=== PATIENT | male | born 1970 | race Caucasian/White ===

== ENCOUNTER 2021-04-30 20:06 | Observation (INO) ==
[2021-04-30 20:59] LABS: Basophils % 0.2 %; Hematocrit 33.2 % (37.5-50.1); Hemoglobin 11.4 g/dL (12.9-16.9); Immature Granulocytes % 0.2 % (0-4); Lymphocytes # 1.1 K/mcL (0.6-4.6); Lymphocytes % 20.8 %; Mean Corpuscular HGB Conc 34.3 g/dL (31.6-35.5); Mean Corpuscular Hemoglobin 31.5 pg (28.0-33.3); Mean Corpuscular Volume 91.7 fL (83.0-100.0); Mean Platelet Volume 11.1 fL (9.4-12.4); Monocytes # 0.4 K/mcL (0.0-1.3); Monocytes % 6.8 %; Platelet Count 167 K/mcL (140-400); Red Blood Count 3.62 M/mcL (4.19-5.50); Red Cell Distribution Width 12.8 % (11.5-14.5); White Blood Count 5.5 K/mcL (4.3-11.1)
[2021-04-30 21:06] LABS: INR 1.3
[2021-04-30] MEDS ORDERED: Isovue-370 500 ML BOTTLE IVP ONE ×2 (21:08→23:15)
[2021-04-30 21:09] LABS: Activated Partial Thrombo Time 27.6 Seconds (26.0-36.0)
[2021-04-30 21:17] LABS: Troponin I < 0.03 ng/mL (< 0.04)
[2021-04-30 21:18] LABS: Alanine Aminotransferase 41 Units/L (7-52); Albumin 3.6 g/dL (3.5-5.7); Albumin/Globulin Ratio 1.7 (1.1-2.2); Alkaline Phosphatase 27 Units/L (34-104); Aspartate Amino Transferase 52 Units/L (13-39); BUN/Creatinine Ratio 11 (6-26); Bilirubin,Total 0.3 mg/dL (0.3-1.0); Blood Urea Nitrogen 30 mg/dL (6-20); Calcium 7.1 mg/dL (8.6-10.3); Carbon Dioxide 23 mEq/L (23-29); Chloride 97 mEq/L (98-107); Globulin 2.1 g/dL (2.4-3.5); Glucose 181 mg/dL (70-105); Osmolality,Calculated 283 (280-300); Potassium 3.4 mEq/L (3.5-5.1); Sodium 131 mEq/L (136-145); Total Protein 5.7 g/dL (6.4-8.9); eGFR For African Americans 30 (> 60); eGFR For Non-African Americans 25 (> 60)
[2021-04-30] MEDS ORDERED: Azithromycin 500 MG in D5% in Water 250 ML IVPB ONE ×2 (22:35→23:15)
[2021-04-30] MEDS ORDERED: cefTRIAXone 1,000 MG in 0.9 % Sodium Chloride Mini Bag 100 ML IVPB ONE ×2 (22:35→23:15)
[2021-04-30] MEDS ORDERED: *HR* Enoxaparin 40 MG/0.4 ML SYRINGE SQ STA ×2 (22:36→23:15)
[2021-04-30] MEDS ORDERED: 0.9 % Sodium Chloride 1,000 ML IVC SCH ×2 (22:45→23:15)
[2021-04-30] MEDS ORDERED: Ibuprofen 400 MG TABLET PO PRN (23:15)
[2021-04-30] MEDS ORDERED: Ondansetron ODT 4 MG TAB.RAPDIS SL PRN (23:15)
[2021-04-30] MEDS ORDERED: Naloxone 0.4 MG/ML INJ IVP PRN (23:15)
[2021-04-30] MEDS ORDERED: *HR* HYDROcodone/Acet 10/325 mg TABLET PO PRN (23:15)
[2021-05-01] MEDS: *HR* Enoxaparin 40 MG/0.4 ML SYRINGE SQ SCH (04:56)
[2021-05-01] MEDS ORDERED: Benzonatate 100 MG CAPSULE PO PRN (07:50)
[2021-05-01] MEDS: BuPROPion XL (24 HR) 150 MG TABLET PO SCH (08:02)
[2021-05-01] MEDS: Fenofibrate 54 MG TABLET PO SCH (08:03)
[2021-05-01] MEDS: Gabapentin 300 MG CAPSULE PO SCH ×3 (08:03→20:20)
[2021-05-01] MEDS: Loratadine 10 MG TABLET PO SCH (08:03)
[2021-05-01] MEDS: Venlafaxine XR (24 HR) 150 MG CAP.ER.24H PO SCH (08:03)
[2021-05-01 08:26] LABS: Hematocrit 29.9 % (37.5-50.1); Hemoglobin 10.6 g/dL (12.9-16.9); Immature Granulocytes % 0.5 % (0-4); Lymphocytes # 0.8 K/mcL (0.6-4.6); Lymphocytes % 22.6 %; Mean Corpuscular HGB Conc 35.5 g/dL (31.6-35.5); Mean Corpuscular Hemoglobin 31.8 pg (28.0-33.3); Mean Corpuscular Volume 89.8 fL (83.0-100.0); Mean Platelet Volume 10.8 fL (9.4-12.4); Monocytes # 0.2 K/mcL (0.0-1.3); Monocytes % 4.9 %; Neutrophils # 2.7 K/mcL (1.6-8.9); Platelet Count 156 K/mcL (140-400); Red Blood Count 3.33 M/mcL (4.19-5.50); Red Cell Distribution Width 12.7 % (11.5-14.5); White Blood Count 3.7 K/mcL (4.3-11.1)
[2021-05-01 08:35] LABS: BUN/Creatinine Ratio 17 (6-26); Blood Urea Nitrogen 20 mg/dL (6-20); Calcium 7.2 mg/dL (8.6-10.3); Carbon Dioxide 26 mEq/L (23-29); Chloride 101 mEq/L (98-107); Glucose 159 mg/dL (70-105); Osmolality,Calculated 284 (280-300); Potassium 3.7 mEq/L (3.5-5.1); Sodium 134 mEq/L (136-145); eGFR For African Americans > 60 (> 60); eGFR For Non-African Americans > 60 (> 60)
[2021-05-01] MEDS ORDERED: lisinopriL 20 MG TABLET PO SCH (09:00)
[2021-05-01] MEDS: 0.9 % Sodium Chloride 1,000 ML IVC SCH ×3 (09:20→23:12)
[2021-05-01] MEDS: Acetaminophen 325 MG TABLET PO PRN ×2 (11:00→20:19)
[2021-05-01 12:18] LABS: C-Reactive Protein < 5 mg/L (Less than 10)
[2021-05-01 13:14] LABS: Ferritin 1096 ng/mL (20-250)
[2021-05-01] MEDS ORDERED: Azithromycin 500 MG in 0.9 % Sodium Chloride 250 ML IVPB SCH (21:00)
[2021-05-01] MEDS ORDERED: QUEtiapine Fumarate 25 MG TABLET PO SCH (21:00)
[2021-05-01] MEDS ORDERED: cefTRIAXone 2,000 MG in 0.9 % Sodium Chloride Mini Bag 100 ML IVPB SCH (21:00)
[2021-05-01] MEDS ORDERED: risperiDONE 1 MG TABLET PO SCH (21:00)
[2021-05-02] MEDS: *HR* Enoxaparin 40 MG/0.4 ML SYRINGE SQ SCH (06:24)
[2021-05-02 06:53] VITALS: BP 98/61; PULSE 50; RESP 16; TEMP 97.4; O2SAT 97
[2021-05-02 07:04] LABS: Hematocrit 30.8 % (37.5-50.1); Hemoglobin 10.8 g/dL (12.9-16.9); Immature Granulocytes % 0.3 % (0-4); Lymphocytes % 28.4 %; Mean Corpuscular HGB Conc 35.1 g/dL (31.6-35.5); Mean Corpuscular Hemoglobin 31.4 pg (28.0-33.3); Mean Corpuscular Volume 89.5 fL (83.0-100.0); Mean Platelet Volume 10.6 fL (9.4-12.4); Monocytes # 0.4 K/mcL (0.0-1.3); Monocytes % 11.7 %; Platelet Count 140 K/mcL (140-400); Red Blood Count 3.44 M/mcL (4.19-5.50); Red Cell Distribution Width 12.3 % (11.5-14.5); Segmented Neutrophils % 59.6 %; White Blood Count 3.6 K/mcL (4.3-11.1)
[2021-05-02 07:27] LABS: BUN/Creatinine Ratio 15 (6-26); Blood Urea Nitrogen 12 mg/dL (6-20); Calcium 7.7 mg/dL (8.6-10.3); Carbon Dioxide 26 mEq/L (23-29); Chloride 106 mEq/L (98-107); Glucose 230 mg/dL (70-105); Neutrophils # 2.2 K/mcL (1.6-8.9); Osmolality,Calculated 297 (280-300); Potassium 4.2 mEq/L (3.5-5.1); Sodium 140 mEq/L (136-145); eGFR For African Americans > 60 (> 60); eGFR For Non-African Americans > 60 (> 60)
[2021-05-02] MEDS: Loratadine 10 MG TABLET PO SCH (09:29)
[2021-05-02] MEDS: Venlafaxine XR (24 HR) 150 MG CAP.ER.24H PO SCH (09:30)
[2021-05-02] MEDS: Acetaminophen 325 MG TABLET PO PRN (09:30)
[2021-05-02] MEDS: BuPROPion XL (24 HR) 150 MG TABLET PO SCH (09:30)
[2021-05-02] MEDS: Fenofibrate 54 MG TABLET PO SCH (09:30)
[2021-05-02] MEDS: Gabapentin 300 MG CAPSULE PO SCH (09:31)
== END 2021-05-02 11:40 | disposition home or self-care (01) ==
LOC: INPPIK 20:06 → EMEROOPIK 20:06 → INPPIK 23:06
PROVIDERS: ADMIT Internal Medicine; ATTEND Family Medicine

== ENCOUNTER 2021-05-06 10:50 | Observation (INO) ==
[2021-05-06] MEDS ORDERED: Ipratropium/Albuterol Neb 3 ML IH ONE (10:55)
[2021-05-06] MEDS ORDERED: methylPREDNISolone 125 MG/2 ML VIAL IVP ONE (10:55)
[2021-05-06] MEDS ORDERED: Azithromycin 500 MG in 0.9 % Sodium Chloride 250 ML IVPB ONE (10:55)
[2021-05-06 11:48] LABS: Basophils % 0.1 %; Hematocrit 36.6 % (37.5-50.1); Hemoglobin 13.1 g/dL (12.9-16.9); Immature Granulocytes % 0.6 % (0-4); Lymphocytes # 0.9 K/mcL (0.6-4.6); Lymphocytes % 13.4 %; Mean Corpuscular HGB Conc 35.8 g/dL (31.6-35.5); Mean Corpuscular Hemoglobin 31.1 pg (28.0-33.3); Mean Corpuscular Volume 86.9 fL (83.0-100.0); Mean Platelet Volume 11.8 fL (9.4-12.4); Monocytes # 0.5 K/mcL (0.0-1.3); Monocytes % 7.8 %; Neutrophils # 5.2 K/mcL (1.6-8.9); Platelet Count 163 K/mcL (140-400); Red Blood Count 4.21 M/mcL (4.19-5.50); Red Cell Distribution Width 11.8 % (11.5-14.5); Segmented Neutrophils % 78.1 %; White Blood Count 6.7 K/mcL (4.3-11.1)
[2021-05-06 12:04] LABS: Alanine Aminotransferase 98 Units/L (7-52); Albumin 4.1 g/dL (3.5-5.7); Albumin/Globulin Ratio 1.5 (1.1-2.2); Alkaline Phosphatase 33 Units/L (34-104); Aspartate Amino Transferase 66 Units/L (13-39); BUN/Creatinine Ratio 26 (6-26); Bilirubin,Direct 0.2 mg/dL (0.0-0.2); Bilirubin,Indirect 0.5 mg/dL (0.0-1.0); Bilirubin,Total 0.7 mg/dL (0.3-1.0); Blood Urea Nitrogen 23 mg/dL (6-20); Calcium 9.1 mg/dL (8.6-10.3); Carbon Dioxide 29 mEq/L (23-29); Chloride 92 mEq/L (98-107); Globulin 2.7 g/dL (2.4-3.5); Glucose 220 mg/dL (70-105); Osmolality,Calculated 288 (280-300); Potassium 3.4 mEq/L (3.5-5.1); Sodium 134 mEq/L (136-145); Total Protein 6.8 g/dL (6.4-8.9); eGFR For African Americans > 60 (> 60); eGFR For Non-African Americans > 60 (> 60)
[2021-05-06 12:06] LABS: Troponin I < 0.03 ng/mL (< 0.04)
[2021-05-06] MEDS ORDERED: Ondansetron 4 MG/2 ML VIAL IVP PRN (13:59)
[2021-05-06] MEDS ORDERED: Naloxone 0.4 MG/ML INJ IVP PRN (13:59)
[2021-05-06] MEDS ORDERED: MOM Conc 10 ML UD.LIQ PO PRN (13:59)
[2021-05-06] MEDS ORDERED: Mag Hydrox/Al Hydrox/Simeth 30 ML UDC PO PRN (13:59)
[2021-05-06] MEDS ORDERED: Acetaminophen 325 MG TABLET PO PRN (13:59)
[2021-05-06] MEDS: Gabapentin 300 MG CAPSULE PO SCH ×2 (15:35→20:31)
[2021-05-06] MEDS: levoFLOXacin 750 MG/150 ML 750 MG/150 ML BAG IVPB SCH (15:36)
[2021-05-06] MEDS: QUEtiapine Fumarate 25 MG TABLET PO SCH (20:31)
[2021-05-06] MEDS: risperiDONE 1 MG TABLET PO SCH (20:31)
[2021-05-06] MEDS: *HR* HYDROcodone/Acet 10/325 mg TABLET PO PRN (20:31)
[2021-05-06] MEDS: Benzonatate 100 MG CAPSULE PO PRN (20:31)
[2021-05-06 20:48] LABS: C-Reactive Protein 24 mg/L (Less than 10)
[2021-05-06 21:58] LABS: Ferritin > 1500 ng/mL (20-250)
[2021-05-07] MEDS: *HR* Enoxaparin 40 MG/0.4 ML SYRINGE SQ SCH (04:45)
[2021-05-07 07:31] LABS: Basophils % 0.2 %; Hematocrit 34.5 % (37.5-50.1); Hemoglobin 12.6 g/dL (12.9-16.9); Immature Granulocytes % 1.7 % (0-4); Lymphocytes # 0.8 K/mcL (0.6-4.6); Lymphocytes % 14.4 %; Mean Corpuscular HGB Conc 36.5 g/dL (31.6-35.5); Mean Corpuscular Hemoglobin 31.7 pg (28.0-33.3); Mean Corpuscular Volume 86.9 fL (83.0-100.0); Mean Platelet Volume 11.8 fL (9.4-12.4); Monocytes # 0.5 K/mcL (0.0-1.3); Monocytes % 8.7 %; Neutrophils # 4.3 K/mcL (1.6-8.9); Platelet Count 179 K/mcL (140-400); Red Blood Count 3.97 M/mcL (4.19-5.50); Red Cell Distribution Width 11.8 % (11.5-14.5); White Blood Count 5.8 K/mcL (4.3-11.1)
[2021-05-07 07:46] LABS: BUN/Creatinine Ratio 44 (6-26); Blood Urea Nitrogen 39 mg/dL (6-20); Calcium 9.2 mg/dL (8.6-10.3); Carbon Dioxide 26 mEq/L (23-29); Chloride 94 mEq/L (98-107); Glucose 411 mg/dL (70-105); Osmolality,Calculated 305 (280-300); Potassium 4.1 mEq/L (3.5-5.1); Sodium 134 mEq/L (136-145); eGFR For African Americans > 60 (> 60); eGFR For Non-African Americans > 60 (> 60)
[2021-05-07] MEDS: levoFLOXacin 750 MG/150 ML 750 MG/150 ML BAG IVPB SCH (09:15)
[2021-05-07] MEDS: Venlafaxine XR (24 HR) 150 MG CAP.ER.24H PO SCH (09:15)
[2021-05-07] MEDS: lisinopriL 10 MG TABLET PO SCH (09:16)
[2021-05-07] MEDS: *HR* LORazepam 0.5 MG TABLET PO PRN ×2 (09:16→19:58)
[2021-05-07] MEDS: Benzonatate 100 MG CAPSULE PO PRN ×2 (09:16→19:58)
[2021-05-07] MEDS: Loratadine 10 MG TABLET PO SCH (09:16)
[2021-05-07] MEDS: BuPROPion XL (24 HR) 150 MG TABLET PO SCH (09:16)
[2021-05-07] MEDS: Gabapentin 300 MG CAPSULE PO SCH ×3 (09:16→19:58)
[2021-05-07] MEDS: Fenofibrate 54 MG TABLET PO SCH (09:16)
[2021-05-07] MEDS: *HR* HYDROcodone/Acet 10/325 mg TABLET PO PRN ×3 (09:26→21:42)
[2021-05-07] MEDS ORDERED: Insulin LISPRO 300 UNITS/3 ML VIAL SUBQ SCH ×3 (11:30→21:00)
[2021-05-07] MEDS ORDERED: Insulin LISPRO 300 UNITS/3 ML VIAL SUBQ STA (12:23)
[2021-05-07] MEDS ORDERED: 0.9 % Sodium Chloride 1,000 ML IVC ONE (12:25)
[2021-05-07] MEDS: 0.9 % Sodium Chloride 1,000 ML IVC SCH ×3 (14:13→16:35)
[2021-05-07 14:29] LABS: VBG HCO3 26 mEq/L (21-27); VBG PCO2 38 mmHg (41-51); VBG PH 7.44 pH Units (7.32-7.42); VBG PO2 32 mmHg (25-50)
[2021-05-07 14:49] LABS: BUN/Creatinine Ratio 38 (6-26); Blood Urea Nitrogen 32 mg/dL (6-20); Calcium 8.7 mg/dL (8.6-10.3); Carbon Dioxide 27 mEq/L (23-29); Chloride 96 mEq/L (98-107); Glucose 404 mg/dL (70-105); Osmolality,Calculated 300 (280-300); Potassium 3.7 mEq/L (3.5-5.1); Sodium 133 mEq/L (136-145); eGFR For African Americans > 60 (> 60); eGFR For Non-African Americans > 60 (> 60)
[2021-05-07] MEDS ORDERED: D5% in Water 1,000 ML IVC PRN (15:07)
[2021-05-07] MEDS ORDERED: Dextrose Gel 15 GM/37.5 ML TUBE PO PRN ×2 (15:07)
[2021-05-07] MEDS ORDERED: *HR* Dextrose 50 % in Water (Vial) 50 ML VIAL IVP PRN (15:07)
[2021-05-07] MEDS: Insulin LISPRO 300 UNITS/3 ML VIAL SUBQ SCH ×3 (15:23→23:59)
[2021-05-07] MEDS: QUEtiapine Fumarate 25 MG TABLET PO SCH (19:57)
[2021-05-07] MEDS: risperiDONE 1 MG TABLET PO SCH (19:58)
[2021-05-07 21:00] LABS: Estimated Average Glucose 203 mg/dl; Hemoglobin A1C 8.7 %
[2021-05-08] MEDS: 0.9 % Sodium Chloride 1,000 ML IVC SCH (02:42)
[2021-05-08] MEDS: *HR* HYDROcodone/Acet 10/325 mg TABLET PO PRN ×2 (03:30→09:36)
[2021-05-08] MEDS: Insulin LISPRO 300 UNITS/3 ML VIAL SUBQ SCH ×2 (03:30→07:05)
[2021-05-08] MEDS: *HR* Enoxaparin 40 MG/0.4 ML SYRINGE SQ SCH (07:06)
[2021-05-08 07:07] LABS: Basophils % 0.1 %; Hematocrit 30.9 % (37.5-50.1); Hemoglobin 10.8 g/dL (12.9-16.9); Lymphocytes # 0.7 K/mcL (0.6-4.6); Lymphocytes % 9.3 %; Mean Corpuscular Hemoglobin 30.7 pg (28.0-33.3); Mean Corpuscular Volume 87.8 fL (83.0-100.0); Mean Platelet Volume 11.1 fL (9.4-12.4); Monocytes # 0.4 K/mcL (0.0-1.3); Monocytes % 5.9 %; Neutrophils # 6.2 K/mcL (1.6-8.9); Platelet Count 175 K/mcL (140-400); Red Blood Count 3.52 M/mcL (4.19-5.50); Red Cell Distribution Width 12.1 % (11.5-14.5); Segmented Neutrophils % 82.7 %; White Blood Count 7.5 K/mcL (4.3-11.1)
[2021-05-08 07:13] VITALS: BP 152/81; PULSE 53; RESP 18; TEMP 98.2
[2021-05-08 07:29] LABS: BUN/Creatinine Ratio 27 (6-26); Blood Urea Nitrogen 18 mg/dL (6-20); Calcium 7.8 mg/dL (8.6-10.3); Carbon Dioxide 25 mEq/L (23-29); Chloride 107 mEq/L (98-107); Glucose 205 mg/dL (70-105); Osmolality,Calculated 294 (280-300); Potassium 4.3 mEq/L (3.5-5.1); Sodium 138 mEq/L (136-145); eGFR For African Americans > 60 (> 60); eGFR For Non-African Americans > 60 (> 60)
[2021-05-08] MEDS: Gabapentin 300 MG CAPSULE PO SCH (08:38)
[2021-05-08] MEDS: Venlafaxine XR (24 HR) 150 MG CAP.ER.24H PO SCH (08:38)
[2021-05-08] MEDS: lisinopriL 10 MG TABLET PO SCH (08:38)
[2021-05-08] MEDS: Fenofibrate 54 MG TABLET PO SCH (08:38)
[2021-05-08] MEDS: levoFLOXacin 750 MG/150 ML 750 MG/150 ML BAG IVPB SCH (08:38)
[2021-05-08] MEDS: BuPROPion XL (24 HR) 150 MG TABLET PO SCH (08:38)
[2021-05-08] MEDS: Loratadine 10 MG TABLET PO SCH (08:38)
[2021-05-08 10:24] VITALS: O2SAT 94
[2021-05-09 13:19] LABS: C-Reactive Protein 5 mg/L (Less than 10); Ferritin > 1500 ng/mL (20-250)
[2021-05-09 17:36] LABS: Acinetobacter baumannii by PCR Not Detected (Not Detect); Candida albicans by PCR Not Detected (Not Detect); Candida glabrata by PCR Not Detected (Not Detect); Candida krusei by PCR Not Detected (Not Detect); Candida parapsilosis by PCR Not Detected (Not Detect); Candida tropicalis by PCR Not Detected (Not Detect); Enterobacter cloacae Cmplx PCR Not Detected (Not Detect); Enterobacteriaceae by PCR Not Detected (Not Detect); Enterococcus by PCR Not Detected (Not Detect); Escherichia coli by PCR Not Detected (Not Detect); Klebsiella oxytoca by PCR Not Detected (Not Detect); Klebsiella pneumoniae by PCR Not Detected (Not Detect); Proteus by PCR Not Detected (Not Detect); Pseudomonas aeruginosa by PCR Not Detected (Not Detect); Serratia marcescens by PCR Not Detected (Not Detect); Staphylococcus aureus by PCR Not Detected (Not Detect); Staphylococcus by PCR Not Detected (Not Detect); Streptococcus agalactiae(B)PCR Not Detected (Not Detect); Streptococcus by PCR Not Detected (Not Detect); Streptococcus pneumoniae PCR Not Detected (Not Detect); Streptococcus pyogenes (A) PCR Not Detected (Not Detect)
== END 2021-05-08 11:05 | disposition home or self-care (01) ==
LOC: EMEROOPIK 10:50 → INPPIK 10:50
PROVIDERS: ADMIT Family Medicine; ATTEND Family Medicine